=== PATIENT | female | born 1985 | race Caucasian/White ===

== ENCOUNTER → 2016-10-09 | Emergency (ER) | payer SELFPAY ==
--- NOTE | 2016-10-09 21:15 | NUR ---
1ST CALL... NO SHOW
--- NOTE | 2016-10-09 21:30 | NUR ---
2ND CALL... NO ONE IN WAITING ROOM, FILE WILL BE CLOSED
== END | disposition home or self-care (01) ==
LOC: ER 20:45
DX: Z53.21 Procedure and treatment not carried out due to patient leaving prior to being seen by health care provider (principal)